=== PATIENT | female | born 1980 | race Two or more races ===

== ENCOUNTER 2017-11-03 12:26 | Outpatient (CLI) | payer OTHER | END 2017-11-03 16:10 | disposition home or self-care (01) | LOC: OBT 12:26 → L-D 12:26 → OBT 16:10 | DX: O36.8330 Maternal care for abnormalities of the fetal heart rate or rhythm, third trimester, not applicable or unspecified (principal); O40.3XX0 Polyhydramnios, third trimester, not applicable or unspecified; O09.513 Supervision of elderly primigravida, third trimester; Z3A.36 36 weeks gestation of pregnancy | CPT/HCPCS: 76818 ==

== ENCOUNTER 2017-11-22 17:29 | Outpatient (CLI) | payer OTHER | END 2017-11-22 18:45 | disposition home or self-care (01) | LOC: OBT 17:29 → L-D 17:30 → OBT 18:45 | DX: O09.513 Supervision of elderly primigravida, third trimester (principal); Z3A.37 37 weeks gestation of pregnancy | CPT/HCPCS: 76818 ==

== ENCOUNTER 2017-11-25 10:18 | Outpatient (CLI) | payer OTHER | END 2017-11-25 12:46 | disposition home or self-care (01) | LOC: OBT 10:18 → L-D 10:18 → OBT 12:46 | DX: O09.513 Supervision of elderly primigravida, third trimester (principal); Z3A.38 38 weeks gestation of pregnancy | CPT/HCPCS: 76818 ==

== ENCOUNTER 2017-11-28 16:02 | Outpatient (CLI) | payer OTHER | END 2017-11-28 17:55 | disposition home or self-care (01) | LOC: OBT 16:02 → L-D 16:03 → OBT 17:55 | DX: O62.9 Abnormality of forces of labor, unspecified (principal); Z3A.39 39 weeks gestation of pregnancy | CPT/HCPCS: 76815; 76818 ==

== ENCOUNTER 2017-12-01 14:59 | Outpatient (CLI) | payer OTHER | END 2017-12-01 17:23 | disposition home or self-care (01) | LOC: OBT 14:59 → L-D 15:00 → OBT 17:23 | DX: O09.513 Supervision of elderly primigravida, third trimester (principal); Z3A.39 39 weeks gestation of pregnancy | CPT/HCPCS: 76818 ==

== ENCOUNTER 2017-12-05 14:43 | Outpatient (CLI) | payer OTHER | END 2017-12-05 17:50 | disposition home or self-care (01) | LOC: OBT 14:43 → L-D 14:43 → OBT 17:50 | DX: O09.513 Supervision of elderly primigravida, third trimester (principal); Z3A.39 39 weeks gestation of pregnancy | CPT/HCPCS: 76818 ==

== ENCOUNTER 2017-12-10 07:58 | Inpatient (IN) | payer OTHER ==
[2017-12-10] MEDS ORDERED: CARBOPROST 250 MCG INJ IM (10:00)
[2017-12-10] MEDS ORDERED: OXYTOCIN 30 UNITS/LR 500 ML IV ×2 (10:00)
[2017-12-10] MEDS ORDERED: IBUPROFEN 600 MG TAB PO (10:00)
[2017-12-10] MEDS ORDERED: METHYLERGONOVINE 0.2 MG INJ IM (10:00)
[2017-12-10] MEDS ORDERED: MISOPROSTOL 200 MCG TAB PR (10:00)
[2017-12-10] MEDS ORDERED: LIDOCAINE 1% (MPF) 30 ML INJ INJ (10:00)
[2017-12-10] MEDS ORDERED: BUTORPHANOL 2 MG INJ IV (10:00)
[2017-12-10] MEDS ORDERED: OXYCODONE/ASPIRIN (4.88/325) TAB PO (10:00)
[2017-12-10] MEDS: LACTATED RINGER'S 1,000 ML IV* ×3 (11:42→23:53)
[2017-12-10 11:57] LABS: ADD MAN DIFF? NO
[2017-12-10 12:07] LABS: WHITE BLOOD COUNT 7.5 10^3/ul (4.8-10.8)
[2017-12-10 12:07] LABS: ABNORMAL IP MESSAGE 1; BASOPHILS % 0.3 % (0.0-2.0); EOSINOPHILS # 0.1 10^3/ul (0.0-0.5); EOSINOPHILS % 0.8 % (0.0-7.0); HEMATOCRIT 39.2 % (37.0-47.0); HEMOGLOBIN 12.3 g/dl (12.0-16.0); LYMPHOCYTES # 1.8 10^3/ul (0.8-2.9); LYMPHOCYTES % 24.4 % (15.0-51.0); MEAN CORPUSCULAR HEMOGLOBIN 28.7 pg (29.0-33.0); MEAN CORPUSCULAR HGB CONC 31.4 g/dl (32.0-37.0); MEAN CORPUSCULAR VOLUME 91.4 fl (82.0-101.0); MEAN PLATELET VOLUME 12.4 fl (7.4-10.4); MONOCYTE # 0.7 10^3/ul (0.3-0.9); MONOCYTES % 9.7 % (0.0-11.0); NEUTROPHIL # 4.9 10^3/ul (1.6-7.5); NEUTROPHILS % 64.3 % (39.0-77.0); PLATELET COUNT 203 10^3/UL (140-415); RED BLOOD COUNT 4.29 10^6/ul (4.20-5.40)
[2017-12-10 12:09] LABS: POSITIVE DIFF @See below
[2017-12-10 12:26] LABS: INR 0.89; PROTIME 12.1 Sec (11.9-14.9); PT RATIO 0.9
[2017-12-10 12:27] LABS: PARTIAL THROMBOPLASTIN TIME 25.1 Sec (23.0-35.0)
[2017-12-10 13:08] LABS: HEPATITIS B SURFACE ANTIGEN NEGATIVE (NEGATIVE)
[2017-12-10 15:00] LABS: RAPID PLASMA REAGIN NONREACTIVE (NR)
[2017-12-10] MEDS: MISOPROSTOL 50 MCG CAPSULE PO ×2 (15:06→19:06)
[2017-12-11] MEDS: MISOPROSTOL 50 MCG CAPSULE PO ×6 (05:05→17:09)
[2017-12-11] MEDS: LACTATED RINGER'S 1,000 ML IV* ×2 (07:32→15:26)
[2017-12-11] MEDS: OXYTOCIN 30 UNITS/LR 500 ML IV (22:38)
[2017-12-12] MEDS: LACTATED RINGER'S 1,000 ML IV* ×3 (00:12→17:08)
[2017-12-13] MEDS: DINOPROSTONE 10 MG VAG SUPP VAG (01:41)
[2017-12-13] MEDS: LACTATED RINGER'S 1,000 ML IV* ×3 (04:25→20:10)
[2017-12-14] MEDS: LACTATED RINGER'S 1,000 ML IV* ×2 (03:51→13:56)
[2017-12-14 06:34] LABS: ADD MAN DIFF? NO
[2017-12-14 06:37] LABS: ABNORMAL IP MESSAGE 1; BASOPHILS % 0.1 % (0.0-2.0); EOSINOPHILS # 0.1 10^3/ul (0.0-0.5); EOSINOPHILS % 0.6 % (0.0-7.0); HEMATOCRIT 40.8 % (37.0-47.0); HEMOGLOBIN 12.7 g/dl (12.0-16.0); LYMPHOCYTES % 25.3 % (15.0-51.0); MEAN CORPUSCULAR HEMOGLOBIN 28.7 pg (29.0-33.0); MEAN CORPUSCULAR HGB CONC 31.1 g/dl (32.0-37.0); MEAN CORPUSCULAR VOLUME 92.1 fl (82.0-101.0); MEAN PLATELET VOLUME 12.6 fl (7.4-10.4); MONOCYTE # 0.6 10^3/ul (0.3-0.9); MONOCYTES % 7.5 % (0.0-11.0); NEUTROPHIL # 5.3 10^3/ul (1.6-7.5); PLATELET COUNT 198 10^3/UL (140-415); RED BLOOD COUNT 4.43 10^6/ul (4.20-5.40)
[2017-12-14 06:59] LABS: POSITIVE DIFF @See below
[2017-12-14] MEDS ORDERED: EPHEDrine SULFATE 50 MG/5 ML SYG (07:00)
[2017-12-14 07:36] LABS: PROTIME 12.2 Sec (11.9-14.9)
[2017-12-14] MEDS ORDERED: OXYTOCIN 30 UNITS/LR 500 ML IV ×3 (08:00→14:00)
[2017-12-14] MEDS ORDERED: CEFAZOLIN 2 GM/50 ML (PMX) 50 ML IV (08:00)
[2017-12-14] MEDS ORDERED: FAMOTIDINE 20 MG INJ (09:20)
[2017-12-14] MEDS ORDERED: CITRIC ACID/NA CITRATE 30 ML CUP (09:21)
[2017-12-14] MEDS: FAMOTIDINE 20 MG INJ IV (09:22)
[2017-12-14] MEDS: METOCLOPRAMIDE 10 MG INJ IV (09:22)
[2017-12-14] MEDS: CITRIC ACID/NA CITRATE 30 ML CUP PO (09:22)
[2017-12-14] MEDS ORDERED: BUPIVACAINE 0.75%/DEXT (SPINAL) 2 ML INJ (09:46)
[2017-12-14] MEDS ORDERED: morphine SULFATE/PF (10 MG/10 ML) INJ (09:46)
[2017-12-14] MEDS ORDERED: ONDANSETRON 4 MG INJ (10:02)
[2017-12-14] MEDS ORDERED: MEPERIDINE 25 MG INJ IV (11:30)
[2017-12-14] MEDS ORDERED: HYDROmorphONE 1 MG/5 ML IV SYRINGE IV ×3 (11:30)
[2017-12-14] MEDS ORDERED: KETOROLAC 30 MG INJ IV (11:30)
[2017-12-14] MEDS ORDERED: FENTAnyl 50 MCG/ML VIAL IV ×3 (11:30)
[2017-12-14] MEDS ORDERED: DIPHENHYDRAMINE 50 MG INJ IV ×2 (11:30→14:30)
[2017-12-14] MEDS ORDERED: PROCHLORPERAZINE 10 MG INJ IV (11:30)
[2017-12-14] MEDS ORDERED: ONDANSETRON 4 MG INJ IV (11:30)
[2017-12-14] MEDS: LACTATED RINGER'S 1,000 ML IV (13:56)
[2017-12-14] MEDS ORDERED: DEXTROSE 5%-LR 1,000 ML IV (13:56)
[2017-12-14] MEDS ORDERED: MISOPROSTOL 200 MCG TAB PR (14:00)
[2017-12-14] MEDS ORDERED: LANOLIN 7 GM TUBE TOP (14:00)
[2017-12-14] MEDS: OXYCODONE/ACETAMINOPHEN (5/325) TAB PO (14:00)
[2017-12-14] MEDS ORDERED: CARBOPROST 250 MCG INJ IM (14:00)
[2017-12-14] MEDS ORDERED: METHYLERGONOVINE 0.2 MG INJ IM (14:00)
[2017-12-14] MEDS ORDERED: METHYLERGONOVINE 0.2 MG TAB PO (14:00)
[2017-12-14] MEDS ORDERED: NALOXONE (0.4 MG/ML) INJ IV (14:30)
[2017-12-14] MEDS ORDERED: HYDROmorphONE 0.5 MG/0.5 ML SYG IV ×2 (14:30)
[2017-12-14] MEDS ORDERED: ZOLPIDEM 5 MG TAB PO (14:30)
[2017-12-14] MEDS: OXYTOCIN 30 UNITS/LR 500 ML IV (15:00)
[2017-12-14] MEDS: ONDANSETRON 4 MG INJ IV (17:46)
[2017-12-14] MEDS: SENNA/DOCUSATE NA (8.6MG/50MG) TAB PO (23:10)
[2017-12-15] MEDS: OXYTOCIN 30 UNITS/LR 500 ML IV ×2 (01:50→06:15)
[2017-12-15] MEDS: KETOROLAC 30 MG INJ IV ×2 (02:35→09:47)
[2017-12-15 07:42] LABS: ADD MAN DIFF? NO
[2017-12-15 07:49] LABS: WHITE BLOOD COUNT 10.2 10^3/ul (4.8-10.8)
[2017-12-15 07:49] LABS: ABNORMAL IP MESSAGE 1; BASOPHILS % 0.3 % (0.0-2.0); EOSINOPHILS # 0.1 10^3/ul (0.0-0.5); EOSINOPHILS % 0.6 % (0.0-7.0); HEMATOCRIT 38.3 % (37.0-47.0); HEMOGLOBIN 12.1 g/dl (12.0-16.0); LYMPHOCYTES # 1.9 10^3/ul (0.8-2.9); LYMPHOCYTES % 18.5 % (15.0-51.0); MEAN CORPUSCULAR HGB CONC 31.6 g/dl (32.0-37.0); MEAN CORPUSCULAR VOLUME 91.8 fl (82.0-101.0); MEAN PLATELET VOLUME 12.2 fl (7.4-10.4); MONOCYTE # 0.9 10^3/ul (0.3-0.9); MONOCYTES % 8.4 % (0.0-11.0); NEUTROPHIL # 7.3 10^3/ul (1.6-7.5); NEUTROPHILS % 71.7 % (39.0-77.0); PLATELET COUNT 158 10^3/UL (140-415); RED BLOOD COUNT 4.17 10^6/ul (4.20-5.40); RED CELL DISTRIBUTION WIDTH 24.8 % (11.5-14.5)
[2017-12-15 07:52] LABS: POSITIVE DIFF @See below
[2017-12-15] MEDS: SENNA/DOCUSATE NA (8.6MG/50MG) TAB PO ×2 (09:46→21:12)
[2017-12-15] MEDS ORDERED: OXYCODONE/ACETAMINOPHEN (5/325) TAB PO (09:56)
[2017-12-15] MEDS: HYDROCODONE/APAP (5/325) TAB PO ×4 (10:00→22:31)
[2017-12-15] MEDS: IBUPROFEN 800 MG TAB PO ×2 (14:00→22:30)
[2017-12-16] MEDS: IBUPROFEN 800 MG TAB PO ×3 (05:29→22:00)
[2017-12-16] MEDS: HYDROCODONE/APAP (5/325) TAB PO ×3 (05:30→23:06)
[2017-12-16] MEDS: SENNA/DOCUSATE NA (8.6MG/50MG) TAB PO ×2 (10:11→23:05)
[2017-12-17] MEDS: IBUPROFEN 800 MG TAB PO ×2 (06:47→13:56)
[2017-12-17] MEDS: HYDROCODONE/APAP (5/325) TAB PO ×2 (06:48→13:57)
[2017-12-17] MEDS: SENNA/DOCUSATE NA (8.6MG/50MG) TAB PO (08:53)
[2017-12-17] MEDS: MEASLES,MUMPS,RUBELLA VACCINE INJ SC* (13:58)
[2017-12-17] MEDS: DIPHTH/TET/ACEL PERTUSS (ADULT) 0.5 ML VIAL IM* (14:03)
== END 2017-12-17 15:45 | disposition home or self-care (01) | DRG 788 ==
LOC: L-D 07:58 → PP1 12-14 13:01
PROVIDERS: Obstetrics & Gynecology
PROC: 3E033VJ Introduction of Other Hormone into Peripheral Vein, Percutaneous Approach (ICD-10-PCS; 2017-12-10 08:00)
PROC: 10D00Z1 Extraction of Products of Conception, Low, Open Approach (ICD-10-PCS; principal; 2017-12-14 08:30)
DX: O48.0 Post-term pregnancy (principal); Z3A.40 40 weeks gestation of pregnancy; Z37.0 Single live birth
CPT/HCPCS: 76815; 85025; 85610; 85730; 86592; 86850; 86900; 86901; 87340; 90715; 99464